=== PATIENT | male | born 1955 | race Caucasian/White ===

== ENCOUNTER 2020-01-30 05:39 | Inpatient (IN) ==
[2020-01-30] MEDS ORDERED: ALVIMOPAN 12 MG CAPSULE ONE (05:57)
[2020-01-30] MEDS ORDERED: ERTAPENEM 1,000 MG VIAL ONE (05:57)
[2020-01-30] MEDS ORDERED: ERTAPENEM 1,000 MG in SODIUM CHLORIDE 0.9% 100 ML IV ONE (06:00)
[2020-01-30] MEDS ORDERED: ALVIMOPAN 12 MG CAPSULE PO ONE (06:00)
[2020-01-30] MEDS ORDERED: DIAZEPAM 5 MG TABLET PO ONE (06:27)
[2020-01-30] MEDS ORDERED: FAMOTIDINE 20 MG TABLET PO ONE (06:27)
[2020-01-30] MEDS ORDERED: ACETAMINOPHEN 500 MG TABLET PO ONE (06:27)
[2020-01-30] MEDS ORDERED: GABAPENTIN 400 MG CAPSULE PO ONE (06:27)
[2020-01-30] MEDS ORDERED: TISSUE ADHESIVE 1 EACH APPLICATOR TOP ONE ×2 (06:29→09:53)
[2020-01-30] MEDS ORDERED: ROPIVACAINE 0.5% 30 ML VIAL ONE ×2 (06:30→06:40)
[2020-01-30] MEDS ORDERED: DEXAMETHASONE 4 MG/1 ML VIAL ONE (06:30)
[2020-01-30] MEDS ORDERED: LIDOCAINE 1% 5 ML VIAL ONE (06:30)
[2020-01-30] MEDS ORDERED: INDOCYANINE GREEN 25 MG VIAL IV ONE (06:32)
[2020-01-30] MEDS: LACTATED RINGERS 1,000 ML IV SCH ×6 (06:39→19:53)
[2020-01-30] MEDS ORDERED: DIAZEPAM 5 MG TABLET ONE (06:40)
[2020-01-30] MEDS ORDERED: FAMOTIDINE 20 MG TABLET ONE (06:41)
[2020-01-30] MEDS ORDERED: ACETAMINOPHEN 500 MG TABLET ONE (06:41)
[2020-01-30] MEDS ORDERED: GABAPENTIN 400 MG CAPSULE ONE (06:41)
[2020-01-30 06:49] LABS: Hematocrit 44.1 VOL% (42.0-52.0); Hemoglobin 14.6 GM/DL (14.0-18.0)
[2020-01-30] MEDS ORDERED: HYDROmorphone 2 MG/1 ML VIAL IV PRN (10:05)
[2020-01-30] MEDS ORDERED: LIDOCAINE 2% 5 ML VIAL ONE (10:06)
[2020-01-30] MEDS ORDERED: propofoL 200 MG/20 ML VIAL IV ONE (10:06)
[2020-01-30] MEDS ORDERED: SEVOFLURANE 1 UNIT/15 MINUTE INH ONE (10:07)
[2020-01-30] MEDS ORDERED: ePHEDrine 50 MG/ML VIAL ONE (10:07)
[2020-01-30] MEDS ORDERED: fentaNYL 250 MCG/5 ML VIAL ONE ×2 (10:07)
[2020-01-30] MEDS ORDERED: ONDANSETRON 4 MG/2 ML VIAL ONE (10:07)
[2020-01-30] MEDS ORDERED: ALBUMIN 5% 12.5 GM/250 ML VIAL IV ONE (10:07)
[2020-01-30] MEDS ORDERED: ACETAMINOPHEN 1,000 MG/100 ML VIAL IV ONE (10:07)
[2020-01-30] MEDS ORDERED: MIDAZOLAM 2 MG/2 ML VIAL ONE (10:07)
[2020-01-30] MEDS ORDERED: ROCURONIUM 100 MG/10 ML VIAL IV ONE (10:08)
[2020-01-30] MEDS ORDERED: PHENYLEPHRINE 1 MG/10 ML SYRINGE IV ONE (10:08)
[2020-01-30 10:29] LABS: Basophils % 0.3 % (0.0-0.8); Eosinophils # 0.1 10*3/uL (0.0-0.87); Eosinophils % 0.4 % (0.00-10.9); Hematocrit 40.2 VOL% (42.0-52.0); Hemoglobin 13.2 GM/DL (14.0-18.0); Immature Granulocytes % 0.6 %; Immature Granulocytes Absolute 0.07 #; Lymphocytes # 0.7 10*3/uL (1.4-4.0); Lymphocytes % 6.1 % (21.2-54.2); Mean Corpuscular HGB Conc 32.8 GM/DL (32-36); Mean Corpuscular Volume 90.3 FL (87-102); Mean Platelet Volume 10.7 FL (9.6-12.0); Monocytes % 2.7 % (1.7-12.7); Neutrophils % 89.9 % (38.7-73.9); Platelet Count 253 T/CUMM (130-400); Red Blood Count 4.45 MC/CUMM (3.8-5.5); Red Cell Distribution Width 13.2 % (9.3-17.3); White Blood Count 11.7 T/CUMM (4-12)
[2020-01-30 10:39] LABS: Calcium 8.2 MG/DL (8.5-10.1); Osmolality,Calculated 276.7 MOS/KG (273-304)
[2020-01-30] MEDS: KETOROLAC 30 MG/1 ML VIAL IV SCH ×3 (10:45→23:45)
[2020-01-30] MEDS ORDERED: KETOROLAC 30 MG/1 ML VIAL ONE (10:45)
[2020-01-30] MEDS ORDERED: ONDANSETRON 4 MG/2 ML VIAL IV PRN (10:51)
[2020-01-30] MEDS: HYDROmorphone 2 MG/1 ML VIAL IV PRN ×4 (10:55→11:10)
[2020-01-30] MEDS ORDERED: POLYVINYL ALCOHOL 1.4% OPH SOLN 15 ML BOTTLE BOTH EYES PRN (17:34)
[2020-01-30] MEDS: TAMSULOSIN 0.4 MG CAPSULE PO SCH (20:15)
[2020-01-30] MEDS: ALVIMOPAN 12 MG CAPSULE PO SCH (20:15)
[2020-01-31] MEDS ORDERED: ENOXAPARIN 40 MG/0.4 ML SYRINGE SUBCUT SCH (03:48)
[2020-01-31] MEDS: LACTATED RINGERS 1,000 ML IV SCH ×2 (04:14→05:09)
[2020-01-31] MEDS: KETOROLAC 30 MG/1 ML VIAL IV SCH ×2 (04:29→10:38)
[2020-01-31 05:22] LABS: Basophils % 0.2 % (0.0-0.8); Eosinophils % 0.1 % (0.00-10.9); Hematocrit 38.5 VOL% (42.0-52.0); Hemoglobin 12.6 GM/DL (14.0-18.0); Immature Granulocytes % 0.4 %; Immature Granulocytes Absolute 0.06 #; Lymphocytes # 1.5 10*3/uL (1.4-4.0); Lymphocytes % 9.3 % (21.2-54.2); Mean Corpuscular HGB Conc 32.7 GM/DL (32-36); Mean Corpuscular Volume 89.5 FL (87-102); Monocytes % 8.4 % (1.7-12.7); Neutrophils % 81.6 % (38.7-73.9); Platelet Count 259 T/CUMM (130-400); Red Cell Distribution Width 13.2 % (9.3-17.3); White Blood Count 16.1 T/CUMM (4-12)
[2020-01-31 05:47] LABS: Calcium 8.1 MG/DL (8.5-10.1); Osmolality,Calculated 277.5 MOS/KG (273-304)
[2020-01-31] MEDS: ALVIMOPAN 12 MG CAPSULE PO SCH (08:52)
[2020-01-31] MEDS: TAMSULOSIN 0.4 MG CAPSULE PO SCH (08:52)
[2020-01-31] MEDS ORDERED: PANTOPRAZOLE 40 MG TABLET PO SCH (09:00)
[2020-01-31 11:41] LABS: Hematocrit 37.2 VOL% (42.0-52.0)
[2020-01-31 11:51] VITALS: BP 108/62
[2020-02-15] MEDS ORDERED: NIVOLUMAB IV SCH (10:05)
== END 2020-01-31 16:49 | disposition home or self-care (01) | DRG 331 ==
LOC: N.OR 05:39 → N.SDSINP 05:39 → N.4E 12:32 → N.OR 01-31 16:49 → N.4E 02-01 06:27
PROVIDERS: ADMIT Surgery; ATTEND Surgery